=== PATIENT | male | born 1945 | race Caucasian/White ===

== ENCOUNTER 2022-03-26 12:36 | Emergency (ER) | payer MEDICARE ==
[~2022-03-26 12:36] MED LIST: AMOX500C2 PO; ASP325T PO; ASP81TEC PO; FISH OIL PO; NITR0.3T6 SL; NITROGLYCERIN; OMEG-12 PO; PNT40TEC PO; VITAMIN D3 PO; [UNRECOGNIZED DRUG - OTHER] PO; [UNRECOGNIZED DRUG - OTHER] PO
[2022-03-26] MEDS ORDERED: FAMOTIDINE 20 MG (PEPCID) TABLET PO ONE (13:00)
[2022-03-26] MEDS ORDERED: predniSONE 20 MG TAB PO ONE (13:00)
--- NOTE | 2022-03-26 13:25 | ED Pediatric Illness ---
HPI-Pediatric Illness General Chief Complaint: Bite-Animal/Human/Insect Stated Complaint: WASP STINGS Nursing Triage Note: Patient presents to the ED with c/o wasp stings. States that he was stung approximatly 6 times on his back. Reports that he had a previous reaction a few years ago when being stung on the face and his eyes swelled shut. Localized reaction noted. Denies any difficulty breathing or swallowing. Source: patient Exam Limitations: no limitations History of Present Illness Date Seen by Provider: Mar 26, 2022 Time Seen by Provider: 13:00 Initial Comments Patient is a 77 yo male who presents with multiple wasp stings starting 1 hour [employer]. 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 No chest tightness, shortness of breath, wheezing or rash. No other acute symptoms or complaints. Timing/Duration: 1/2 hour Severity: mild Associated Symptoms: other Modifying Factors: improves with Other Presenting Symptoms: other Allergies and Home Medications Allergies Coded Allergies: No Known Drug Allergies (Unverified , 02/04/12) Patient Home Medication List Home Medication List Reviewed: Yes Amoxicillin (Amoxicillin) 500 Mg Capsule, 1 EACH PO TID, (Reported) Entered as Reported by: SASCHA SHEA on 02/04/12 1700 Aspirin (Aspirin 325 Mg Tab) 325 Mg Tab, 325 MG PO DAILY, (Reported) Entered as Reported by: SASCHA SHEA on 02/04/12 1658 Nitroglycerin (Nitroglycerin) 0.3 Mg Tab.subl, 0.4 MG SL PRN, (Reported) Entered as Reported by: SASCHA SHEA on 02/04/12 1427 Pantoprazole Sod (Protonix Tab) 40 Mg Tab, 40 MG PO DAILY, (Reported) Entered as Reported by: ROGERS GIMENEZ on 02/05/12 1134 [Fish Oil/Vitamin D-3] , 1 TAB PO DAILY, (Reported) Entered as Reported by: SASCHA SHEA on 02/04/12 1846 [Prostate Defense] , 2 TAB PO BID, (Reported) Entered as Reported by: SASCHA SHEA on 02/04/121846 [Tikva] , 1 DOSE PO DAILY, (Reported) Entered as Reported by: SASCHA SHEA on 02/04/12 1850 Review of Systems Review of Systems Constitutional: see HPI EENTM: see HPI Respiratory: see HPI Cardiovascular: see HPI Gastrointestinal: see HPI Genitourinary: see HPI Musculoskeletal: see HPI Skin: see HPI Psychiatric/Neurological: See HPI Endocrine: See HPI Hematologic/Lymphatic: See HPI PMH-Pediatrics Recent Foreign Travel: No Contact w/other who traveled: No Recent Infectious Disease Expo: No Hx Respiratory Disorders: No Hx Cardiovascular Disorders: Yes Hx Neurological Disorders: No Hx Reproductive Disorders: No Hx Genitourinary Disorders: Yes Hx Gastrointestinal Disorders: No Hx Musculoskeletal Disorders: Yes Hx Endocrine Disorders: No HX ENT Disorders: Yes Hx Psychiatric Problems: No Hx Blood Disorders: No Physical Exam-Pediatric Physical Exam Vital Signs - First Documented 03/26/22 12:40 Temp 36.5 Pulse 62 Resp 16 B/P (MAP) 153/70 (97) Pulse Ox 98 O2 Delivery Room Air Capillary Refill : Less Than 3 Seconds Height, Weight, BMI Height: '" Weight: lbs. oz. kg; BMI Method: General Appearance: no acute distress, see HPI HENT: head inspection normal, PERRL, TMs normal, nose normal, pharynx normal Neck: full range of motion, supple Respiratory: lungs clear Skin: No rash Lymphatic: other (Minimally inflamed while splints without allergic reaction) Progress/Results/Core Measures Results/Orders My Orders Orders - TRINA CORTEZ DO Prednisone Tablet (Deltasone Tablet) (03/26/22 13:00) Famotidine Tablet (Pepcid Tablet) (03/26/22 13:00) Medications Given in ED Current Medications Medications Dose Ordered Sig/Rubia Route Start Time Stop Time Status Last Admin Dose Admin Famotidine 40 mg ONCE ONCE PO 03/26/22 13:00 03/26/22 13:01 DC 03/26/22 13:10 40 MG Prednisone 50 mg ONCE ONCE PO 03/26/22 13:00 03/26/22 13:01 DC 03/26/22 13:10 50 MG Vital Signs/I&O 03/26/22 12:40 Temp 36.5 Pulse 62 Resp 16 B/P (MAP) 153/70 (97) Pulse Ox 98 O2 Delivery Room Air Blood Pressure Mean: 97 Departure Communication (Admissions) Wasp stings without history of allergic symptoms. Prednisone and Pepcid given. Patient monitored without allergic symptoms. Recommendations are supportive care watchful waiting and PCP follow-up. Impression Primary Impression: Wasp sting Disposition: 01 HOME, SELF-CARE Condition: Stable Departure-Patient Inst. Decision time for Depature: 13:25 Referrals: NO,LOCAL PHYSICIAN (PCP/Family) Primary Care Physician Patient Instructions: Insect Bites and Stings ED Add. Discharge Instructions: Please take wash with soap stings upon returning home and take newly prescribed medications as directed. Use EpiPen if acute airway swelling shortness of breath or other concerning symptoms. Return to the ED if new or worsening symptoms. All discharge instructions reviewed with patient and/or family. Voiced understanding. Scripts Epinephrine (Epipen 2-Sourav) 0.3 Mg/0.3 Ml Auto.injct 0.3 MG IJ Q15M PRN for DYSPNEA, #1 ML Prov: TRINA CORTEZ DO 03/26/22 Prednisone (Prednisone) 50 Mg Tab 50 MG PO DAILY, #3 TAB Prov: TRINA CORTEZ DO 03/26/22 TRINA CORTEZ DO Mar 26, 2022 13:25
[2022-03-26] MEDS ORDERED: PRD50T PO (13:29)
[2022-03-26] MEDS ORDERED: EPIN0.3P3 IJ (13:29)
[2022-03-26 13:31] VITALS: BP 151/66
== END 2022-03-26 13:31 | disposition home or self-care (01) ==
LOC: EDUNIT# 12:36 → ER FS 12:37
DX: T63.461A Toxic effect of venom of wasps, accidental (unintentional), initial encounter (principal)
CPT/HCPCS: 99283